=== PATIENT | male | born 1975 | race Hispanic/Latino ===

== ENCOUNTER 2016-08-23 09:00 | Emergency (ER) | payer OTHER ==
[~2016-08-23] VITALS: Ht 177.8 cm; Wt 111.0 kg
[~2016-08-23 09:00] MED LIST: ADVAIR 100/501 DISK; ADVAIR 100/501 DISK IH; ADVAIR 250/501 DISK IH; ALBUTEROL SULF8.5 GM IH; ALBUTEROL2.5 MG/3 M IH; AZITHROMYCIN500 M1 PO; CLINDAMYCIN HC150 MG PO; NORCO 5/3251 TABLET PO; PEN-VEE K,VEET500 MG PO; PREDNISONE10 MG PO; PREDNISONE50 MG PO; PROAIR HFA8.5 GM; ULTRAM50 MG PO; ZITHROMAX Z-PA250 MG PO
[2016-08-23 10:36] LABS: ADD MIUA? NO; BILIRUBIN NEGATIVE; BLOOD NEGATIVE; COLOR LT YELLOW ((YELLOW)); GLUCOSE (STRIP) NEGATIVE; KETONES NEGATIVE; LEUKOCYTES NEGATIVE; NITRITE NEGATIVE; PH, URINE 6.5 (5-8); PROTEIN (STRIP) NEGATIVE; UCUL ADDED? NO; UROBILINOGEN 0.2 MG/DL (0.2-1.0)
[2016-08-23 11:43] LABS: HEMATOCRIT 41.6 % (38.0-50.0); MCH 29.6 PG (29.0-34.0); MCHC 35.1 G/DL (30.0-36.0); MCV 84.2 FL (86-99); MEAN PLAT.VOLUME 11.3 uM^3 (9.0-12.4); PLATELET COUNT 195 K/uL (156-360); RBC DIS.WIDTH-CV 12.5 % (11.8-14.6); RBC DIS.WIDTH-SD 37.7 % (39-53); RED BLOOD COUNT 4.94 M/uL (4.00-5.50); WHITE BLOOD COUNT 7.7 K/uL (4.1-10.2)
[2016-08-23 12:02] LABS: CHLORIDE 107 mEq/L (99-109); POTASSIUM 3.8 mEq/L (3.7-5.4); SODIUM 142 mEq/L (136-147)
[2016-08-23 12:04] LABS: GLUCOSE 88 mg/dL (70-99)
[2016-08-23 12:05] LABS: ANION GAP 8 MEQ/L (2-14)
[2016-08-23 12:06] LABS: TOTAL BILIRUBIN 1.2 mg/dL (0.0-1.0)
[2016-08-23 12:07] LABS: ALKALINE PHOSPHATASE 61 IU/L (3-129)
[2016-08-23 12:08] LABS: GFR ESTIMATE (CALCULATED) > 59 mL/min/
[2016-08-23 12:09] LABS: UREA NITROGEN (BUN) 9 mg/dL (9-23)
[2016-08-23] MEDS ORDERED: NAPROSYN500 MG PO (12:40)
[2016-08-23] MEDS ORDERED: LIDODERM 5% P1 PATCH TD (12:40)
[2016-08-23] MEDS ORDERED: FLEXERIL10 MG PO (12:40)
[2016-08-23 12:57] VITALS: BP 99/70
== END 2016-08-23 12:58 | disposition home or self-care (01) ==
LOC: EME 09:00
PROVIDERS: Nurse Practitioner Family
DX: K76.0 Fatty (change of) liver, not elsewhere classified (principal); R10.30 Lower abdominal pain, unspecified
CPT/HCPCS: 74020; 76770; 80053; 81003; 85027; 99281; 99284; J1885

== ENCOUNTER 2017-11-29 09:07 | Emergency (ER) | payer OTHER ==
[~2017-11-29] VITALS: Ht 177.8 cm; Wt 109.1 kg
[~2017-11-29 09:07] MED LIST changes: +FLEXERIL10 MG PO; +LIDODERM 5% P1 PATCH TD; +NAPROSYN500 MG PO
[2017-11-29] MEDS ORDERED: INDOCIN50 MG PO (11:36)
[2017-11-29 11:43] VITALS: BP 144/107
== END 2017-11-29 11:43 | disposition home or self-care (01) ==
LOC: EME 09:07
DX: M25.561 Pain in right knee (principal)
CPT/HCPCS: 73564; 99281; 99283